=== PATIENT | female | born 1970 | race Caucasian/White ===

== ENCOUNTER → 2017-06-29 | Outpatient (CLI) | payer SELFPAY ==
[~2017-06-29] MED LIST: TRIHYD253A PO
[2017-06-29 18:46] LABS: Specimen Source CERVIX
[2017-06-30 14:27] LABS: Source Cervix
[2017-07-01 09:33] LABS: HCV Non Reactive (NR)
== END | disposition home or self-care (01) ==
LOC: LAB EV 18:40
PROVIDERS: Physician Assistant Surgical
DX: N94.89 Other specified conditions associated with female genital organs and menstrual cycle (principal); Z72.51 High risk heterosexual behavior
CPT/HCPCS: 80074; 87070; 87205; 87389; 87491; 87529; 87591